=== PATIENT | female | born 1955 | race Caucasian/White ===

== ENCOUNTER → 2019-02-24 | Outpatient (CLI) | payer OTHER ==
[~2019-02-24] VITALS: Ht 157.5 cm; Wt 82.6 kg
[~2019-02-24] MED LIST: CELEXA 20 MG TA20 MG PO; LANTUS SUBQ; LIPITOR40 MG PO; PLAVIX 75 MG TA75 MG PO; TESSALON PERLE100 M1 PO; TRAMADOL 50 MG50 MG PO; VITAMIN B-121000 MC2 SL; XANAX 0.25 MG0.25 MG PO
--- NOTE | ~2019-02-24 | HC ---
[facility] [place] [address] CONSULTATION Name: AZ HARRIS Room #: REG [facility].#: [id number] Admission: 02/24/19 Attend Phys: Sanket Clifford MD Discharge: Date of : 53 Report #: [id number] THIS REPORT FOR: //name// CC: Sanket Thomas CARDIOLOGY CONSULT HISTORY OF PRESENT ILLNESS: The patient is a 63-year-old female who I am asked to evaluate for coronary artery issues. She has significant peripheral vascular disease and has had some progressive dyspnea and shortness of breath. She is being admitted today for lower extremity intervention and cardiac catheterization based on her long history of diabetes, tobacco and documented peripheral vascular disease and her symptomatology, which suggested an accelerating anginal pattern, decreased exercise tolerance, dyspnea and some occasional chest pressure, neck discomfort, but typically with exertion. Obviously, her exertion is limited. They do live at the [facility] and used to live in a cabin which required some physical activity and now live in a trailer. No current alcohol. She does still vape and has a history of tobacco use, which was curbed somewhat in 2012 with a limited stroke at that time without residual, but she did get disability and longstanding diabetic. MEDICATIONS: Xanax, Tessalon, Celexa, insulin, tramadol. 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 SOCIAL HISTORY: She lives currently down at the [place] in a trailer with her sister. Still vaping. No significant alcohol. She has children and was . She is disabled due to the stroke. FAMILY HISTORY: Positive for premature coronary artery disease including her father. REVIEW OF SYSTEMS: Negative except for stated above with progressive claudication issue and dyspnea. PHYSICAL EXAMINATION: VITAL SIGNS: Blood pressure 132/64, pulse 80s. HEENT: Eyes reveal xanthelasmas. Pharynx is clear. NECK: Shows preserved upstrokes without JVD or bruits. LUNGS: Clear anteriorly. CARDIOVASCULAR: Regular rate and rhythm, S1, S2 distant. ABDOMEN: Soft. No HSM or abdominal bruit. EXTREMITIES: Reveal trace of edema. I cannot palpate the distal pulses. [facility] [address] [place] [address] CONSULTATION Name: AZ HARRIS Room #: [facility] [id number] Admission: 02/24/19 Attend Phys: Sanket Clifford MD Discharge: Date of : 53 Report #: [id number] NEUROLOGIC: Intact. MUSCULOSKELETAL: Generalized arthritic changes. Mild valgus deformity of the knees. SKIN: Warm and dry without xanthoma or ulcer. ASSESSMENT: 1. Suspected underlying coronary artery disease with accelerating angina. 2. Peripheral vascular disease with documented superficial femoral artery stenosis, admitted for possible intervention. 2. Hypertension. 3. Diabetes. 4. Suspected hypercholesterolemia. 5. Continued tobacco use vaping. RECOMMENDATIONS AND PLAN: We will add a statin. We will check lipids, add a statin. Cardiac catheterization with the peripheral intervention. Risks, benefits and alternatives were discussed with the patient and her family. LABORATORY WORK: Creatinine is 1.28, potassium 4.3, sodium 136. H and H was 13.8 and 38.9. Thank you for asking me to assist in the care of this patient. By: 1025 1241 /nt
[2019-02-24 09:23] LABS: HEMATOCRIT 39.9 % (37.0-47.0); HEMOGLOBIN 13.2 gm/dL (12.0-15.0); MCH 29.2 pg (26.0-34.0); MCHC 33.1 g/dL (28.0-37.0); MCV 88.1 fL (80.0-100.0); RBC 4.52 mil/uL (4.20-5.00); RDW 13.2 % (10.5-14.5); WBC 8.9 thou/uL (4.0-11.0)
[2019-02-24 09:32] VITALS: BP 154/68
[2019-02-24 09:36] LABS: CALCIUM 9.7 mg/dL (8.5-10.1); CREATININE 0.9 mg/dL (0.6-1.0); POTASSIUM 4.6 mmol/L (3.5-5.1)
--- NOTE | 2019-02-24 15:05 | EKG ---
[address] [address] ELECTROCARDIOGRAM REPORT Name: KIMBERLYAZ Room #[facility] [id number] Admission: 02/24/19 Attend Phys: Sanket Clifford MD Discharge: Date of : 53 Report #: [id number] THIS REPORT FOR: //name// [facility] Test Date: 2019-02-24 Test Time: 10:45:37 Pat Name: AZ HARRIS Department: Room: Gender: F Back Digger Operator: FAVIAN : 1955 Requested By: Juan Wang Order Number: [id number] MD: Cl Baltazar Measurements Intervals [place] Rate: 77 P: 58 [place]: 177 QRS: 23 QRSD: 73 T: 81 QT: 406 QTc: 460 Interpretive Statements Sinus rhythm Borderline T wave abnormalities No previous ECG available for comparison Electronically Signed On 02-24-2019 15:05:25 BUSINESS PLANNING MANAGER by Cl Baltazar [email or web address] <ELECTRONICALLY SIGNED> By: Cl Baltazar MD 02/24/19 1505 1045 1045 MD MONTRELL Rodriguez
== END | disposition home or self-care (01) ==
LOC: CATH 08:32
PROVIDERS: Nuclear Medicine Nuclear Cardiology
DX: I70.213 Atherosclerosis of native arteries of extremities with intermittent claudication, bilateral legs (principal); I70.1 Atherosclerosis of renal artery; E11.51 Type 2 diabetes mellitus with diabetic peripheral angiopathy without gangrene; I10 Essential (primary) hypertension; E78.00 Pure hypercholesterolemia, unspecified; I25.10 Atherosclerotic heart disease of native coronary artery without angina pectoris; K21.9 Gastro-esophageal reflux disease without esophagitis; E78.5 Hyperlipidemia, unspecified; F17.210 Nicotine dependence, cigarettes, uncomplicated; Z90.49 Acquired absence of other specified parts of digestive tract; Z98.890 Other specified postprocedural states; Z79.899 Other long term (current) drug therapy; Z79.4 Long term (current) use of insulin

== ENCOUNTER → 2019-02-27 | Outpatient (CLI) | payer OTHER ==
[~2019-02-27] VITALS: Ht 157.5 cm; Wt 82.6 kg
[2019-02-27 09:04] VITALS: BP 133/61
== END | disposition home or self-care (01) ==
LOC: CATH 08:06
DX: I70.211 Atherosclerosis of native arteries of extremities with intermittent claudication, right leg (principal); I70.1 Atherosclerosis of renal artery; E11.51 Type 2 diabetes mellitus with diabetic peripheral angiopathy without gangrene; I10 Essential (primary) hypertension; I25.10 Atherosclerotic heart disease of native coronary artery without angina pectoris; E78.00 Pure hypercholesterolemia, unspecified; F17.210 Nicotine dependence, cigarettes, uncomplicated; Z90.49 Acquired absence of other specified parts of digestive tract; Z98.890 Other specified postprocedural states; Z79.4 Long term (current) use of insulin; Z79.899 Other long term (current) drug therapy; Z90.710 Acquired absence of both cervix and uterus; Z86.73 Personal history of transient ischemic attack (TIA), and cerebral infarction without residual deficits

== ENCOUNTER → 2020-11-18 | Outpatient (CLI) | payer OTHER | LOC: SJCVCIMAG 10:17 | PROVIDERS: ATTEND Nuclear Medicine Nuclear Cardiology | DX: I65.23 Occlusion and stenosis of bilateral carotid arteries (principal); I70.203 Unspecified atherosclerosis of native arteries of extremities, bilateral legs; R09.89 Other specified symptoms and signs involving the circulatory and respiratory systems; I25.10 Atherosclerotic heart disease of native coronary artery without angina pectoris; I10 Essential (primary) hypertension; I77.9 Disorder of arteries and arterioles, unspecified; E78.00 Pure hypercholesterolemia, unspecified; E11.9 Type 2 diabetes mellitus without complications; Z87.891 Personal history of nicotine dependence; Z79.82 Long term (current) use of aspirin; Z79.4 Long term (current) use of insulin; Z79.899 Other long term (current) drug therapy ==

== ENCOUNTER → 2021-03-06 | Outpatient (CLI) | payer OTHER ==
--- NOTE | 2021-03-19 11:10 | PATH ---
[facility] [place] [address] PATHOLOGY RPT PROCEDURE Name: AZ SCHULTZ Room #: REG Lorna Kwong#: [id number] Admission: 03/06/21 Date of : 53 Discharge: Report #: [id number] Path Case #: [id number] [facility] Accession Number: [id number] . 01 Material submitted: . breast - LEFT BREAST CALCIFICATIONS. Modifiers: left . 01 Clinical history: . LEFT BREAST CALCIFICATIONS . 01 Diagnosis: Breast, "left inferior breast, stereotactic biopsy": - Fibroadenoma with coarse microcalcifications, the largest fragment measuring 1.0 cm in greatest dimension. - There is no evidence of malignancy. . (See comment) . (SHA:rivera; 03/10/2021) QLM 03/10/2021 1326 Local . 01 Comment: This case is also reviewed by another pathologist who agrees with the above diagnosis. . (SHA:mml; 03/10/2021) . 01 Electronically signed: . Дмитрий Franks MD, Pathologist NPI- [id number] . 01 Gross description: . The specimen is received in formalin, labeled "Az Schultz, left breast". The specimen is additionally labeled on the requisition as, "lt inferior". Received are multiple needle cores of fibrofatty tissue measuring 3.8 x 3.0 x 0.5 cm in aggregate dimensions. Also received within the specimen container is a plastic cassette containing multiple cores of fibrofatty tissue measuring 2.2 x 1.8 x 0.6 cm in aggregate dimensions. The suspect tissue is transferred to cassette A1, with the remainder of the specimen submitted in cassettes A2 through A5. The cold ischemic time is 10 minutes. The total formalin fixation time is 28 hours and 40 minutes. ([facility]; 03/07/2021) QAC/QAC 03/10/2021 1324 Local . 01 Pathologist provided ICD-10: D24.[address] . [address] [address] PATHOLOGY RPT PROCEDURE Name: AZ SCHULTZ Room #: REG [facility]#: [id number] Admission: 03/06/21 Date of : 53 Discharge: Report #: [id number] Path Case #: [id number] [facility] . [id number] Specimen Comment: A duplicate report has been generated due to demographic updates. Performed at: 01 [facility] [place] [address], [place], [place] [id number] MD Дмитрий Franks MD Phone: [phone]
== END | disposition home or self-care (01) ==
LOC: BC 09:07
DX: R92.1 Mammographic calcification found on diagnostic imaging of breast (principal); D24.2 Benign neoplasm of left breast; Z79.899 Other long term (current) drug therapy